=== PATIENT | male | born 1975 | race American Indian/Alaskan Native ===

== ENCOUNTER 2022-01-05 15:14 | Emergency (ER) | payer OTHER ==
[2022-01-05 21:24] LABS: Basophils % (Auto) 0.9 % (0.0-1.8); Eosinophils # (Auto) 0.1 K/mm3 (0.0-0.4); Eosinophils % (Auto) 1.7 % (0.0-4.3); Hematocrit 44.7 % (35.5-45.6); Hemoglobin 14.9 gm/dl (11.8-15.2); Lymphocytes # (Auto) 1.8 K/mm3 (1.2-5.4); Lymphocytes % (Auto) 39.9 % (13.4-35.0); Mean Corpuscular HGB Conc 33 % (32-34); Mean Corpuscular Volume 87 fl (84-94); Monocytes # (Auto) 0.6 K/mm3 (0.0-0.8); Monocytes % (Auto) 12.7 % (0.0-7.3); Platelet Count 220 K/mm3 (140-440); Red Blood Count 5.13 M/mm3 (3.65-5.03); Red Cell Distribution Width 13.3 % (13.2-15.2)
[2022-01-05 21:41] LABS: Albumin 4.2 g/dL (3.9-5); Calcium 9.2 mg/dL (8.4-10.2)
--- NOTE | 2022-01-05 22:55 | Emergency Department Report ---
ED Extremity Problem HPI - General Chief complaint: Dizziness Stated complaint: LIGHTHEADED/HEADACHE Source: patient Mode of arrival: Ambulatory Limitations: No Limitations - History of Present Illness Initial comments: Patient is a 46-year-old -[place] male with no past medical history who presents to the ED with complaint of acute onset persistent intermittent bilater al ankle and foot swelling with pain for the last 1 month. Patient states that the swelling and pain are intermittent and worse at rest that improves with movement. Patient denies chest pain, shortness of breath, traumatic injury, dizziness, syncope, shortness of breath, fever and chills, nausea and vomiting, heavy lifting or back pain. MD Complaint: extremity pain (bilateral ankles), extremity swelling (bilateral ankle swelling), joint swelling (bilateral ankles and feet), joint paint -: Gradual, month(s) (1) Location: bilateral lower extremity History of Same: Yes -: Yes myalgia, Yes arthralgia, No fever, No associated dyspnea, No associated chest pain Radiation: distal Severity scale (0 -10): 4 Quality: aching, dull Consistency: intermittent Improves with: movement Worsens with: rest Associated Symptoms: denies other symptoms, arthralgias (bilateral ankle swelling and pain). denies: chest pain, shortness of breath, fever, myalgias - Related Data Previous Rx's Medication Instructions Recorded Last Taken Type Ibuprofen [Motrin] 800 mg PO Q8HR PRN #30 tablet 01/05/22 Unknown Rx predniSONE [Deltasone] 40 mg PO QDAY #12 tab 01/05/22 Unknown Rx Allergies Allergy/AdvReac Type Severity Reaction Status Date / Time No Known Allergies Allergy Verified 01/05/22 16:42 ED Review of Systems ROS: Stated complaint: LIGHTHEADED/HEADACHE Other details as noted in HPI Constitutional: denies: chills, fever Eyes: denies: eye pain, eye discharge, vision change ENT: denies: ear pain, throat pain Respiratory: denies: cough, shortness of breath, wheezing Cardiovascular: denies: chest pain, palpitations Endocrine: no symptoms reported Gastrointestinal: denies: abdominal pain, nausea, diarrhea Genitourinary: denies: urgency, dysuria Musculoskeletal: joint swelling, arthralgia (bilateral ankle and foot swelling and pain). denies: back pain, myalgia, other Skin: denies: rash, lesions Neurological: denies: headache, weakness, paresthesias Psychiatric: denies: anxiety, depression Hematological/Lymphatic: denies: easy bleeding, easy bruising ED Past Medical Hx - Past Medical History Previous Medical History?: No - Surgical History Past Surgical History?: No - Medications Home Medications: Home Medications Medication Instructions Recorded Confirmed Last Taken Type Ibuprofen [Motrin] 800 mg PO Q8HR PRN #30 tablet 01/05/22 Unknown Rx predniSONE [Deltasone] 40 mg PO QDAY #12 tab 01/05/22 Unknown Rx ED Physical Exam - General Limitations: No Limitations General appearance: alert, in no apparent distress - Head Head exam: Present: atraumatic, normocephalic, normal inspection - Eye Eye exam: Present: normal appearance, PERRL, EOMI Pupils: Present: normal accommodation - ENT ENT exam: Present: normal exam, normal orophraynx, mucous membranes moist, TM's normal bilaterally, normal external ear exam - Neck Neck exam: Present: normal inspection, full ROM. Absent: tenderness - Respiratory Respiratory exam: Present: normal lung sounds bilaterally. Absent: respiratory distress, wheezes, rales, rhonchi, chest wall tenderness, prolonged expiratory - Cardiovascular Cardiovascular Exam: Present: regular rate, normal rhythm, normal heart sounds. Absent: systolic murmur, diastolic murmur, rubs, gallop - GI/Abdominal GI/Abdominal exam: Present: soft, normal bowel sounds. Absent: tenderness, guarding, rebound, hyperactive bowel sounds, hypoactive bowel sounds, organomegaly, mass - Extremities Exam Extremities exam: Present: normal inspection, full ROM, tenderness (Palpable mild bilateral ankle and foot tenderness with mild swelling), normal capillary refill, pedal edema (1+ bilateral pedal edema), joint swelling. Absent: calf t enderness - Back Exam Back exam: Present: normal inspection, full ROM. Absent: tenderness, CVA tenderness (R), CVA tenderness (L), muscle spasm, paraspinal tenderness, vertebral tenderness - Neurological Exam Neurological exam: Present: alert, oriented X3, CN II-XII intact, normal gait, reflexes normal - Psychiatric Psychiatric exam: Present: normal affect, normal mood - Skin Skin exam: Present: warm, dry, intact, normal color. Absent: rash ED Course Vital Signs 01/05/22 16:42 Temperature 98.2 F Pulse Rate 62 Respiratory 16 Rate Blood Pressure 111/70 [Left] O2 Sat by Pulse 95 Oximetry ED Medical Decision Making - Lab Data Result diagrams: 01/05/22 21:08 01/05/22 21:08 - Medical Decision Making This is a 46-year-old -[place] male with no past medical history who presents to the ED with complaint of acute onset persistent intermittent bilateral ankle and foot swelling with pain for the last 1 month. Patient states that the swelling and pain are intermittent and worse at rest that improves with movement. In the ED, patient is alert and oriented x3 and is not in any distress. Patient was treated in the ED for pain and all lab test results were reviewed and are all nonactionable. Patient was therefore discharged home on medications and advised to follow-up with his primary care physician in 7 to 10 days for reevaluation. Patient was advised to return to the ED immediately if symptoms get worse. - Differential Diagnosis Muscle spasm; muscle strain; dependent edema Critical care attestation.: If time is entered above; I have spent that time in minutes in the direct care of this critically ill patient, excluding procedure time. ED Disposition Clinical Impression: Bilateral swelling of feet and ankles Muscle strain of ankle Qualifiers: Encounter type: initial encounter Laterality: unspecified laterality Qualified Code(s): S96.919A - Strain of unspecified muscle and tendon at ankle and foot level, unspecified foot, initial encounter Disposition: 01 HOME / SELF CARE / HOMELESS Is pt being admited?: No Does the pt Need Aspirin: No Condition: Stable Instructions: Muscle Strain, [id number], Elastic Bandage and RICE Therapy, How to Use a Stirrup Ankle Brace, [id number] Additional Instructions: All lab test results were reviewed and are all nonactionable. Therefore take m edication with food, drink plenty of fluids and follow-up with your primary care physician in 7 to 10 days for reevaluation. Ensure that you elevate your legs above your heart when you are at rest at home and use compression stockings as needed to improve on the blood flow on your lower extremities. Return to the ED immediately if symptoms get worse with Prescriptions: predniSONE [Deltasone] 40 mg PO QDAY #12 tab Ibuprofen [Motrin] 800 mg PO Q8HR PRN #30 tablet PRN Reason: Pain , Severe (7-10) Forms: Work/School Release Form(ED) Time of Disposition: 23:03 Print Language: MALAWIAN
[2022-01-05 23:26] VITALS: BP 117/76
== END 2022-01-06 | disposition home or self-care (01) ==
LOC: ED 15:14
DX: S96.912A Strain of unspecified muscle and tendon at ankle and foot level, left foot, initial encounter (principal); M25.472 Effusion, left ankle; M25.471 Effusion, right ankle; M79.89 Other specified soft tissue disorders; X58.XXXA Exposure to other specified factors, initial encounter; Y93.89 Activity, other specified; Y92.89 Other specified places as the place of occurrence of the external cause; Y99.8 Other external cause status
CPT/HCPCS: 36415; 80053; 83880; 84550; 85025; 99283